=== PATIENT | female | born 1950 | race African-American/Black ===

== ENCOUNTER 2019-11-11 02:27 | Emergency (ER) | payer OTHER ==
[~2019-11-11] VITALS: Ht 162.6 cm; Wt 68.0 kg
[~2019-11-11 02:27] MED LIST: AMARYL4 MG PO; ASPIRIN81 M2 PO; CIPRO250 M1 PO; DIOVAN320 MG PO; GABAPENTIN 100100 MG PO; HUMALOG100 UNIT/1 SUBQ; LIPITOR40 MG PO; METFORMIN HCL500 MG PO; PERCOCET PO; PHENERGAN 25 MG25 M1 PO; PREDNISONE 20 M20 M1 PO
[2019-11-11] MEDS ORDERED: PLAVIX 75 MG TA75 MG PO (02:35)
[2019-11-11] MEDS ORDERED: LOSARTAN POTAS100 MG PO (02:35)
[2019-11-11] MEDS ORDERED: HYDROCHLOROTHIA25 M2 PO (02:36)
[2019-11-11] MEDS ORDERED: LEVEMIR FL100 UNIT/2 SUBQ (02:37)
[2019-11-11] MEDS ORDERED: CARVEDILOL12.5 MG PO (02:37)
[2019-11-11] MEDS ORDERED: TRAZODONE HCL50 MG PO (03:31)
[2019-11-11 04:21] VITALS: BP 134/75
== END 2019-11-11 04:15 | disposition home or self-care (01) ==
LOC: ER 02:27
DX: F51.05 Insomnia due to other mental disorder (principal); I10 Essential (primary) hypertension; E11.9 Type 2 diabetes mellitus without complications; E78.5 Hyperlipidemia, unspecified; Z79.4 Long term (current) use of insulin; Z87.891 Personal history of nicotine dependence